=== PATIENT | female | born 1960 | race Caucasian/White ===

== ENCOUNTER → 2020-06-23 | Outpatient (CLI) | payer BC, OTHER | LOC: SJCVCIMAG 08:39 | PROVIDERS: ATTEND Internal Medicine | DX: I08.1 Rheumatic disorders of both mitral and tricuspid valves (principal); Z95.2 Presence of prosthetic heart valve ==

== ENCOUNTER → 2021-01-01 | Outpatient (CLI) | payer BC, OTHER | LOC: SJCVCIMAG 14:35 | PROVIDERS: ATTEND Internal Medicine | DX: I65.23 Occlusion and stenosis of bilateral carotid arteries (principal); R41.3 Other amnesia; R41.0 Disorientation, unspecified ==

== ENCOUNTER → 2021-10-22 | Outpatient (CLI) | payer BC, OTHER | LOC: SJCVCIMAG 09:10 | PROVIDERS: ATTEND Internal Medicine | DX: I07.1 Rheumatic tricuspid insufficiency (principal); I71.2 Thoracic aortic aneurysm, without rupture; Z95.2 Presence of prosthetic heart valve ==